=== PATIENT | female | born 1975 | race Two or more races ===

== ENCOUNTER 2023-11-13 11:37 | Emergency (ER) | payer BC ==
[~2023-11-13] VITALS: Ht 157.5 cm; Wt 59.0 kg
[2023-11-13 12:56] VITALS: BP 130/72; PULSE 78; RESP 16; TEMP 97.9; O2SAT 99
== END 2023-11-13 13:42 | disposition home or self-care (01) ==
LOC: ER 11:37
DX: S46.912A Strain of unspecified muscle, fascia and tendon at shoulder and upper arm level, left arm, initial encounter (principal); W19.XXXA Unspecified fall, initial encounter; Y93.89 Activity, other specified; Y92.89 Other specified places as the place of occurrence of the external cause; Y99.8 Other external cause status
CPT/HCPCS: 73030